=== PATIENT | female | born 1975 | race Caucasian/White ===

== ENCOUNTER → 2017-03-12 | Day surgery (SDC) | payer OTHER ==
[~2017-03-12] MED LIST: AMOX875T PO; BALANCED SALT IRRIG OPHTH SOLN 15 ML BOTTLE. ONE; CHONDROIT-SOD-HYALURONATE KIT. OD ONE; CIPROFLOXACIN 0.3% OPHTH SOLUTION 5ML BOTTLE. OD ONE; HYDR-971 PO; HYDROmorphone 2 MG/ML VIAL IV PRN; IV RINGERS,LACTATED 1000ML 1,000 ML IV SCH; LIDOCAINE 1% PF 2 ML VIAL. ID PRN; LIDOCAINE 1% PF 2 ML VIAL. ONE; LIDOCAINE 2% JELLY 6ML IN APPLICATOR. MM PRN; LIDOCAINE 2% JELLY 6ML IN APPLICATOR. ONE; MORPHINE SULFATE 4 MG/ML DISP.SYRIN. IV PRN; NEO/POLYMYX/DEXAMETH OPHTH OINTMENT 3.5GM TUBE. ONE; OFLO5DRO7 EACH EAR; ONDANSETRON PF 4 MG/2 ML VIAL. IV PRN; PROCHLORPERAZINE 10 MG/2 ML VIAL. IV PRN; PROPARACAINE 0.5% OPHTH SOLUTION 15ML BOTTLE. OD ONE; fentaNYL PF VIAL 100 MCG/2 ML VIAL IV PRN
[2017-03-12] MEDS: CYCLOPENTOLATE 1% OPTH SOLUTION 2ML BOTTLE. OD SCH ×3 (06:51→07:01)
[2017-03-12] MEDS: PHENYLEPHRINE 10% OPHTH SOLUTION 5ML BOTTLE. OD SCH ×3 (06:51→07:01)
[2017-03-12 07:00] LABS: NEG OBC UR NEG; POS OBC UR POS
[2017-03-12 08:55] VITALS: BP 123/58
--- NOTE | 2017-03-12 12:22 | OP ---
DATE OF SURGERY: 03/12/2017 DATE OF SERVICE: 03/12/2017 PREOPERATIVE DIAGNOSIS: Submature cataract, right eye. POSTOPERATIVE DIAGNOSIS: Submature cataract, right eye. PROCEDURE: Phacoemulsification with posterior chamber lens implant with use of VisionBlue, right eye. ANESTHESIA: Topical with MAC. DESCRIPTION OF PROCEDURE: The patient's dilating drops and topical anesthesia were applied in the outpatient department and the [place] balloon cuff placed over the eye and inflated to 30 mmHg and allowed to act for about 15-20 minutes. The patient then brought to the operating room, positioned on the table and the eye was prepped and draped in the usual sterile manner for an intraocular procedure. A lid speculum was placed between the eyelids and the operating microscope brought into position. The eye was first observed. It was noted there was very good dilation and there was a submature cataract, which was making visualization of the capsule difficult. I decided to use VisionBlue. A paracentesis incision was made superior temporally and 1% lidocaine injected in the anterior chamber. This was followed by injection of ____ on a Viscoat plug. VisionBlue was then infiltrated over the anterior capsule and allowed to act for 30 seconds or so. The area was then displaced with Viscoat and the primary 2.4 mm incision made temporally. Capsulorrhexis was then performed without difficulty. The phaco tip was then inserted into the anterior chamber and the lens nucleus phacoemulsified without difficulty. The I/A handle was used to clean up the cortical material. The posterior capsule was polished with a cannula and the bag insufflated with Provisc. A posterior chamber lens was then injected into the posterior chamber into the bag without difficulty. The viscoelastic was aspirated with the I/A handle and the temporal wound was then hydrated and the eye pressurized. The wound was checked for leaks and there were none. The speculum and drape were removed and Maxitrol ointment instilled in the conjunctival sac and the eye was shielded. The patient was taken to the recovery room in satisfactory condition. There were no complications. K NADIRA SHETTY MD DR: BILLIE/moshe JOB#: [id number] / [id number]
== END | disposition home or self-care (01) ==
LOC: SURG 06:22
PROVIDERS: ATTEND Ophthalmology
DX: H26.8 Other specified cataract (principal); E66.9 Obesity, unspecified; F17.200 Nicotine dependence, unspecified, uncomplicated; Z90.49 Acquired absence of other specified parts of digestive tract; Z98.51 Tubal ligation status
CPT/HCPCS: 66984; 81025; C1780; J0171

== ENCOUNTER 2021-02-17 13:17 | Emergency (ER) | payer SELFPAY ==
[~2021-02-17] VITALS: Ht 160 cm; Wt 159.0 kg
[~2021-02-17 13:17] MED LIST changes: -BALANCED SALT IRRIG OPHTH SOLN 15 ML BOTTLE. ONE; -CHONDROIT-SOD-HYALURONATE KIT. OD ONE; -CIPROFLOXACIN 0.3% OPHTH SOLUTION 5ML BOTTLE. OD ONE; +HYDR-3164 PO; -HYDR-971 PO; -HYDROmorphone 2 MG/ML VIAL IV PRN; -IV RINGERS,LACTATED 1000ML 1,000 ML IV SCH; -LIDOCAINE 1% PF 2 ML VIAL. ID PRN; -LIDOCAINE 1% PF 2 ML VIAL. ONE; -LIDOCAINE 2% JELLY 6ML IN APPLICATOR. MM PRN; -LIDOCAINE 2% JELLY 6ML IN APPLICATOR. ONE; -MORPHINE SULFATE 4 MG/ML DISP.SYRIN. IV PRN; -NEO/POLYMYX/DEXAMETH OPHTH OINTMENT 3.5GM TUBE. ONE; -ONDANSETRON PF 4 MG/2 ML VIAL. IV PRN; -PROCHLORPERAZINE 10 MG/2 ML VIAL. IV PRN; -PROPARACAINE 0.5% OPHTH SOLUTION 15ML BOTTLE. OD ONE; -fentaNYL PF VIAL 100 MCG/2 ML VIAL IV PRN
[2021-02-17 13:44] VITALS: BP 177/81
[2021-02-17] MEDS ORDERED: HYDROcodone/APAP 5/325MG 1 TAB TABLET PO ONE (14:45)
--- NOTE | 2021-02-17 15:05 | RAD ---
XR KNEE 3 VIEWS_RT DATE: 02/17/2021 2:05 PM INDICATION: right knee pain, fell COMPARISON: None. FINDINGS: Bones: There is no evidence of acute fracture or dislocation. Joints: Moderate medial compartment degenerative changes, mild to moderate lateral and patellofemora l compartment degenerative changes. There is no joint effusion. Miscellaneous: None. IMPRESSION: No acute fracture. Electronically signed by: Andi Norton MD (02/17/2021 3:03 PM) [facility]
--- NOTE | 2021-02-17 15:05 | RAD ---
XR EXAM OF ANKLE_RIGHT 3VIEWS DATE: 02/17/2021 1:53 PM INDICATION: right ankle pain, fell COMPARISON: None. FINDINGS: Bones: There is no evidence of acute fracture or dislocation. There are a couple of small chronic catrina earing ossific densities adjacent to the medial and lateral malleoli. Plantar calcaneal enthesophyte. Joints: The ankle mortise is congruent. No widening of the distal tibiofibular syndesmosis. Miscellaneous: None. IMPRESSION: No acute fracture. Electronically signed by: Andi Norton MD (02/17/2021 3:02 PM) [facility]
[2021-02-17] MEDS ORDERED: TRAM50TA PO (15:47)
--- NOTE | 2021-02-17 15:48 | PHYS DOC ---
Past Medical History Past Medical History: No Pertinent History Past Surgical History: Cholecystectomy, Tubal ligation Smoking Status: Current Every Day Smoker Alcohol Use: Occasionally Drug Use: None General Adult EDM: Chief Complaint: KNEE INJURY HPI: HPI: Patient is a 45 year old female who present to ER due to right ankle and right knee pain after she fell in her kitchen. Patient stated that she was walking in her kitchen, slipped on some water, her right ankle twisted one way and her right knee twisted the other way. Her daughter brought her here for evaluation. Patient complains of pain when she walks. Patient denies any hip pain, no back pain, no upper extremity pain. She denies any head injury. Review of Systems: Review of Systems: Constitutional: Denies fever or chills. [] Eyes: Denies change in visual acuity. [] HENT: Denies nasal congestion or sore throat. [] Respiratory: Denies cough or shortness of breath. [] Cardiovascular: Denies chest pain or edema. [] GI: Denies abdominal pain, nausea, vomiting, bloody stools or diarrhea. [] : Denies dysuria. [] Musculoskeletal: Positive for right knee pain, right ankle pain. Integument: Denies rash. [] Neurologic: Denies headache, focal weakness or sensory changes. [] Endocrine: Denies polyuria or polydipsia. [] Lymphatic: Denies swollen glands. [] Psychiatric: Denies depression or anxiety. [] Heart Score: C/O Chest Pain: N/A Risk Factors: Risk Factors: DM, Current or recent (<one month) smoker, HTN, HLP, family history of CAD, obesity. Risk Scores: Score 0 - 3: 2.5% MACE over next 6 weeks - Discharge Home Score 4 - 6: 20.3% MACE over next 6 weeks - Admit for Clinical Observation Score 7 - 10: 72.7% MACE over next 6 weeks - Early Invasive Strategies Current Medications: Current Medications Medications (Trade) Dose Ordered Sig/Maile Start Time Stop Time Status Last Admin Dose Admin Acetaminophen/ Hydrocodone Bitart (Lortab 5/325) 2 tab 1X ONCE 02/17/21 14:45 02/17/21 14:46 DC 02/17/21 14:41 2 TAB Allergies: Allergies: Allergies Coded Allergies Type Severity Reaction Last Updated Verified No Known Drug Allergies 03/12/17 No Physical Exam: PE: Constitutional: Well developed, well nourished, no acute distress, non-toxic appearance. [] HENT: Normocephalic, atraumatic, bilateral external ears normal, oropharynx moist, no oral exudates, nose normal. [] Eyes: PERRLA, EOMI, conjunctiva normal, no discharge. [] Neck: Normal range of motion, no tenderness, supple, no stridor. [] Cardiovascular:Heart rate regular rhythm, no murmur [] Lungs & Thorax: Bilateral breath sounds clear to auscultation [] Abdomen: Bowel sounds normal, soft, no tenderness, no masses, no pulsatile masses. [] Skin: Warm, dry, no erythema, no rash. [] Back: No tenderness, no CVA tenderness. [] Extremities: Right knee and right ankle are tender to palpation, there is no swelling, no deformity noted, right knee joint and right ankle joint is stable. Neurologic: Alert and oriented X 3, normal motor function, normal sensory function, no focal deficits noted. [] Psychologic: Affect normal, judgement normal, mood normal. [] Current Patient Data: Vital Signs: Vital Signs Date Time Temp Pulse Resp B/P (MAP) Pulse Ox O2 Delivery O2 Flow Rate FiO2 02/17/21 13:44 98.9 96 16 177/81 (79) 98 Room Air 98.9 EKG: EKG: [] Radiology/Procedures: Radiology/Procedures: [][facility] [address] [place] [address] IMAGING REPORT Signed PATIENT: JESSICA CAMACHO ACCOUNT: [id number] : 1975 LOCATION: ER AGE: 45 SEX: F EXAM STATUS: REG ER ORD. PHYSICIAN: NIA CANAS DO REASON: right ankle pain, fell PROCEDURE: ANKLE RIGHT 3V XR EXAM OF ANKLE_RIGHT 3VIEWS DATE: 02/17/2021 1:53 PM INDICATION: right ankle pain, fell COMPARISON: None. FINDINGS: Bones: There is no evidence of acute fracture or dislocation. There are a couple of small chronic appearing ossific densities adjacent to the medial and lateral malleoli. Plantar calcaneal enthesophyte. Joints: The ankle mortise is congruent. No widening of the distal tibiofibular syndesmosis. Miscellaneous: None. IMPRESSION: No acute fracture. Electronically signed by: Amador Howe MD (02/17/2021 3:02 PM) [facility] DICTATED and SIGNED BY: AMADOR HOWE MD DATE: 02/17/21 [id number] [facility] [address] [place] [address] IMAGING REPORT Signed PATIENT: JESSICA CAMACHO ACCOUNT: [id number] : 1975 LOCATION: ER AGE: 45 SEX: F EXAM STATUS: REG ER ORD. PHYSICIAN: NIA CANAS DO REASON: right knee pain, fell PROCEDURE: KNEE RIGHT 3V XR KNEE 3 VIEWS_RT DATE: 02/17/2021 2:05 PM INDICATION: right knee pain, fell COMPARISON: None. FINDINGS: Bones: There is no evidence of acute fracture or dislocation. Joints: Moderate medial compartment degenerative changes, mild to moderate lateral and patellofemoral compartment degenerative changes. There is no joint effusion. Miscellaneous: None. IMPRESSION: No acute fracture. Electronically signed by: Amador Howe MD (02/17/2021 3:03 PM) [facility] DICTATED and SIGNED BY: AMADOR HOWE MD DATE: 02/17/21 [id number] Course & Med Decision Making: Course & Med Decision Making Pertinent Labs and Imaging studies reviewed. (See chart for details) Patient is a 45-year-old female who present to ER due to right side knee pain and right ankle pain after she fell in her kitchen, x-ray did not show any acute problem. Patient will discharge home with Jose wrap to knee, crutches. Dragon Disclaimer: Efrain Disclaimer: This electronic medical record was generated, in whole or in part, using a voice recognition dictation system. Departure Departure Impression: Primary Impression: Right knee sprain Additional Impression: Right ankle sprain Disposition: HOME / SELF CARE / HOMELESS Condition: STABLE Referrals: NO PCP (PCP) Follow-up with your doctor THIS WEEK FOR REEVALUATION Patient Instructions: Ankle Sprain, Acute, with Phase I Rehab-SportsMed, Crutch Use, Knee Sprain Additional Instructions: Thank you for visiting our Emergency Department. We appreciate you trusting us with your care. If any additional problems come up don't hesitate to return to visit us. Please follow up with your primary care provider so they can plan additional care if needed and know about the problem that you had. If symptoms worsen come back to the Emergency Department. Any concerning symptoms that start such as chest pain, shortness of air, weakness or numbness on one side of the body, running high fevers or any other concerning symptoms return to the ER. Scripts Tramadol Hcl (TRAMADOL HCL) 50 Mg Tablet 50 MG PO Q6HRS PRN for PAIN, #15 TAB Prov: NIA CANAS DO 02/17/21 NIA CANAS DO Feb 17, 2021 15:48
== END 2021-02-17 16:00 | disposition home or self-care (01) ==
LOC: ER 13:17
DX: S83.91XA Sprain of unspecified site of right knee, initial encounter (principal); S93.401A Sprain of unspecified ligament of right ankle, initial encounter; Z90.49 Acquired absence of other specified parts of digestive tract; Z98.51 Tubal ligation status; F17.200 Nicotine dependence, unspecified, uncomplicated; W01.0XXA Fall on same level from slipping, tripping and stumbling without subsequent striking against object, initial encounter; Y93.89 Activity, other specified; Y92.090 Kitchen in other non-institutional residence as the place of occurrence of the external cause; Y99.8 Other external cause status
CPT/HCPCS: 73562; 73610; 99284